=== PATIENT | male | born 1990 | race Caucasian/White ===

== ENCOUNTER 2018-12-25 13:06 | Emergency (ER) | payer SELFPAY ==
[~2018-12-25] VITALS: Ht 165.1 cm; Wt 77.1 kg
[2018-12-25 13:17] VITALS: BP 118/75
[2018-12-25 14:11] VITALS: BP 118/75
== END 2018-12-25 13:57 | disposition home or self-care (01) ==
LOC: MED 13:06
DX: F41.9 Anxiety disorder, unspecified (principal); F43.9 Reaction to severe stress, unspecified
CPT/HCPCS: 99284